=== PATIENT | male | born 1980 | race Hispanic/Latino ===

== ENCOUNTER → 2017-11-28 | Day surgery (SDC) | payer SELFPAY ==
[~2017-11-28] MED LIST: BUPIVACAINE HCL 0.5% INJ 30 ML VIAL INJ ONE; CEFAZOLIN SOD 1 GM VIAL ONE; DEXAMETHASONE SOD PHOS INJ 4 MG/ML VIAL ONE; FENTANYL CITRATE/PF 100MCG/2 ML INJ ONE; KETOROLAC TROMETHAMINE 30 MG/ML VIAL ONE; METOCLOPRAMIDE HCL 10 MG/2ML VIAL ONE; MIDAZOLAM HCL 2 MG/2 ML VIAL ONE; MUPIROCIN 2% OINT 22 GM TUBE ONE; ONDANSETRON HCL INJ 2 MG/ML VIAL ONE; PROPOFOL IV EMULSION 10 MG/ML 20 ML VIAL ONE; SEVOFLURANE INHAL SOLN 250 ML PEN BTL ONE; TRAMADOL HCL100 MG
[2017-11-28 11:15] VITALS: BP 137/98
--- NOTE | 2017-11-28 15:21 | Operative Report ---
DATE OF PROCEDURE: November 28, 2017 PREOPERATIVE DIAGNOSIS: Fracture right index finger middle phalanx, intra-articular displaced. POSTOPERATIVE DIAGNOSIS: Fracture right index finger middle phalanx, intra-articular displaced. OPERATIVE PROCEDURES: Open reduction and percutaneous pinning of right index finger middle phalanx intra-articular fracture. ANESTHESIA: General. INDICATIONS: The patient is a 37-year-old right hand dominant male who sustained a crushing injury to the right index finger approximately 7 to 10 days ago. He seen in the office. Radiographs show a displaced intra-articular fracture involving the articular surface of the middle phalanx. The risks, benefits and alternatives of treatment were discussed with the patient, and he is prepared to undergo the procedures outlined. DETAILS OF PROCEDURE: Patient was marked preoperatively in the holding area. He was brought to the operating theater, and after the induction of adequate general anesthesia, he was prepped and draped in a supine position. A time out was performed. The procedure was begun by bringing in the mini C-arm where verification of the fracture and its displacement was verified. The right upper extremity was exsanguinated, and a tourniquet was inflated to a pressure of 250 mmHg. The incision over the dorsal aspect of the finger was made through the skin and subcutaneous tissues. Venous tributaries were controlled with the bipolar cautery. The flaps were elevated off of the extensor tendon mechanism and retracted. The extensor tendon mechanism was divided in the mid sagittal plane until the periosteum was identified. The periosteum was then incised down to the cortical bone and then, using a Eugene elevator, was elevated off of the cortical bone. The fracture site was easily visualized. Bone callus was already present. Using a Eugene elevator, the bone callous was gently removed from the fracture site. It was noted that the distal articular surface of the middle phalanx was volarly displaced. Once the bone callus had been completely removed, the fracture fragments were then able to be aligned under fluoroscopic guidance in several planes. Once satisfactory anatomic alignment had been achieved, an 0.35 K-wire was driven retrograde across the distal phalanx across the DIP joint, maintaining the distal fragment to the proximal fragment of the middle phalanx, and then driven more proximally to the base of the middle phalanx. In order to prevent rotational deformity around the fracture site, an oblique 0.28 K-wire was then driven across the fracture site under direct fluoroscopic guidance as well. Once the pin sites had been verified, the pins were cut and bent over and left external to the skin. The wound was then irrigated with bacteriostatic saline. The periosteum was closed with 5-0 Vicryl in an interrupted fashion. The extensor tendon was then repaired using 4-0 Vicryl in an interrupted fashion. The wound was irrigated once again, and the skin was approximated with 5-0 nylon in an interrupted horizontal mattress fashion. A Marcaine field block was performed around the base of the index finger. The tourniquet was deflated. All the fingers pinked up nicely, and the wound was noted to be hemostatic. Bactroban ointment and Xeroform gauze were applied. A sterile dressing was applied and then foam aluminum splints fashioned to cover the pins and keep the finger in extension, and this was held in place with a loosely wrapped Coban tape. The patient tolerated the procedure well, was brought to the recovery room in satisfactory condition and discharged with a postoperative instruction sheet as well as a followup appointment. Job#: [id number]
== END | disposition home or self-care (01) ==
LOC: OR 05:41
PROVIDERS: ATTEND Plastic Surgery
DX: S67.190A Crushing injury of right index finger, initial encounter (principal); S62.620A Displaced fracture of middle phalanx of right index finger, initial encounter for closed fracture; X58.XXXA Exposure to other specified factors, initial encounter
CPT/HCPCS: 26735; J0690; J1100; J1885; J2250; J2405; J2765; C1713